=== PATIENT | female | born 1950 | race Hispanic/Latino ===

== ENCOUNTER 2019-03-01 13:09 | Observation (INO) | payer MEDICARE, OTHER ==
[2019-03-01 13:16] VITALS: BMI 31.5
--- NOTE | 2019-03-01 13:33 | ED PDOC ---
Arrival/HPI <Dallin Guzman - Last Filed: 03/01/19 13:58> - General Historian: Patient - History of Present Illness Narrative History of Present Illness (Text): 03/01/19 13:33 Patient is a 68 yo female with COPD, MVP, and depression who presents with chest tightness and dyspnea on exertion. patient states that these symptoms have been occurring for approximately 2 weeks. She has noticed that she becomes very fatigued when cleaning the house or going upstairs. She also feels like she needs to gasp for air at times when talking. She also complains of intermittent left arm numbness/tingling. She saw her boil off worker because she thought it was her COPD. However, she reports that they did a breathing test and told her it was not her lungs and she should see her towel folder. She tried to schedule an appointment with her towel folder, but they told her to just come to the ED to get evaluated. She denies chest pain/pressure. She denies palpitations. She denies trouble breathing when lying flat. She denies edema. She endorses mild headache. She denies lightheadedness or dizziness. Patient reports a history of mitral valve prolapse and does not remember the last time she had an echo. <Vani Peter - Last Filed: 03/01/19 14:43> - General Chief Complaint: Chest Pain Time Seen by Provider: 03/01/19 13:16 Past Medical History - Provider Review Nursing Documentation Reviewed: Yes Primary Care Provider: Fabian Mratinez - Infectious Disease Hx of Infectious Diseases: None - Tetanus Immunization Tetanus Immunization: Unknown - Pulmonary Hx Bronchitis: Yes Hx Chronic Obstructive Pulmonary Disease (COPD): Yes - Musculoskeletal/Rheumatological Hx Falls: No - Psychiatric Hx Depression: Yes Hx Substance Use: No - Surgical History Hx Appendectomy: Yes - Anesthesia Hx Anesthesia: Yes Hx Anesthesia Reactions: No Hx Malignant Hyperthermia: No - Suicidal Assessment Feels Threatened In Home Enviroment: No <Vani Peter - Last Filed: 03/01/19 14:43> Family/Social History - Physician Review Nursing Documentation Reviewed: Yes Family/Social History: Unknown Family HX Smoking Status: Former Smoker Hx Alcohol Use: No Hx Substance Use: No Hx Substance Use Treatment: No <Vani Peter - Last Filed: 03/01/19 14:43> Allergies/Home Meds <Dallin Guzman - Last Filed: 03/01/19 13:58> <PumaAarti ruizVani - Last Filed: 03/01/19 14:43> Allergies/Adverse Reactions: Allergies No Known Allergies Allergy (Verified 03/01/19 13:16) Home Medications: Home Meds Medication Instructions Recorded Confirmed Duloxetine Hydrochloride [Cymbalta] 60 mg PO BID 10/13/13 03/18/15 Sertraline [Zoloft] 25 mg PO HS 10/13/13 03/18/15 Review of Systems - Review of Systems Constitutional: Fatigue. absent: Fevers Eyes: absent: Vision Changes ENT: absent: Hearing Changes Respiratory: SOB. absent: Cough, Sputum, Wheezing Cardiovascular: absent: Chest Pain, Palpitations, Edema, Syncope Gastrointestinal: absent: Abdominal Pain, Constipation, Diarrhea, Nausea, Vomiting Genitourinary Female: absent: Dysuria, Hematuria Musculoskeletal: absent: Arthralgias, Myalgias Skin: absent: Rash, Pruritis, Skin Lesions Neurological: Headache. absent: Dizziness, Focal Weakness Endocrine: absent: Diaphoresis Hemo/Lymphatic: absent: Adenopathy Psychiatric: Anxiety <PumasaraVani - Last Filed: 03/01/19 14:43> Physical Exam Vital Signs Temp Pulse Resp BP Pulse Ox 03/01/19 13:16 98.6 F 80 19 134/94 H 98 <Dallin Guzman - Last Filed: 03/01/19 13:58> Vital Signs Reviewed: Yes Temperature: Afebrile Blood Pressure: Hypertensive Pulse: Regular Respiratory Rate: Normal Appearance: Positive for: Non-Toxic, Comfortable Pain Distress: None Mental Status: Positive for: Alert and Oriented X 3 - Systems Exam Head: Present: Atraumatic, Normocephalic Pupils: Present: PERRL Extroacular Muscles: Present: EOMI Conjunctiva: Present: Normal Mouth: Present: Moist Mucous Membranes Neck: Present: Normal Range of Motion Respiratory/Chest: Present: Clear to Auscultation, Good Air Exchange Cardiovascular: Present: Regular Rate and Rhythm, Normal S1, S2 Abdomen: No: Tenderness, Distention Upper Extremity: Present: Normal Inspection, Neurovascularly Intact Lower Extremity: Present: Normal Inspection. No: Edema Neurological: Present: GCS=15, CN II-XII Intact, Speech Normal Skin: Present: Warm, Dry, Normal Color Psychiatric: Present: Alert, Oriented x 3, Normal Insight, Normal Concentration, Normal Affect, Normal Mood <Vani Peter - Last Filed: 03/01/19 14:43> Medical Decision Making ED Course and Treatment: 03/01/19 13:58 Patient seen and examined with resident. 68 year old F presents complaining of shortness of breath and dyspnea on exertion. No crackles on exam. - RAD Interpretation Radiology Orders: 03/01/19 13:51 CXR [CHEST PORTABLE] [RAD] Stat <Dallin Guzman - Last Filed: 03/01/19 13:58> ED Course and Treatment: 03/01/19 13:47 Labs CXR 03/01/19 14:[address] Mcclellan who accepts patient to his service. Will consult Dr. Lentz for cardiology. 03/01/19 14:42 Spoke to patient regarding admission, and she is in agreement with the plan. - Lab Interpretations I have reviewed the lab results: Yes Interpretation: No clinic. lab abnormalty - RAD Interpretation Narrative RAD Interpretations (Text): 03/01/19 14:14 CXR- no active disease, mild venous congestion Radiology Orders: CXR Cook [place]: ED Physician - EKG Interpretation EKG Interpretation (Text): 03/01/19 13:54 NSR Interpreted by ED Physician: Yes Type: 12 lead EKG Comparison: No previous EKG avail. <Vani Peter - Last Filed: 03/01/19 14:43> Disposition/Present on Arrival <Dallin Guzman - Last Filed: 03/01/19 13:58> - Present on Arrival Any Indicators Present on Arrival: No History of DVT/PE: No History of Uncontrolled Diabetes: No Urinary Catheter: No History of Decub. Ulcer: No History Surgical Site Infection Following: None - Disposition Have Diagnosis and Disposition been Completed?: Yes Disposition Time: 13:52 Patient Plan: Observation, Telemetry <Vani Peter - Last Filed: 03/01/19 14:43> - Disposition Diagnosis: Dyspnea on exertion, Chest tightness Disposition: HOSPITALIZED Patient Problems: Current Active Problems Problem Status Onset Chest tightness Acute Dyspnea on exertion Acute Condition: FAIR Forms: [employer] (Yi)
[2019-03-01 14:15] LABS: BASO # 0.02 K/mm3 (0.0-2.0); BASO % 0.4 % (0.0-3.0); EOS # 0.2 (0.0-0.7); EOS % 3.3 % (1.5-5.0); HEMOGLOBIN 12.6 g/dL (12.0-16.0); LYMPH # 1.3 (1.2-3.4); LYMPH % 24.6 % (22.0-35.0); MEAN CORPUSCULAR HEMOGLOBIN 29.8 pg (25.0-35.0); MEAN CORPUSCULAR HGB CONC 32.7 g/dl (31.0-37.0); MEAN PLATELET VOLUME 9.4 fl (7.0-11.0); MONO # 0.3 (0.1-0.6); MONO % 6.6 % (1.0-6.0); RBC 4.23 10^6/uL (3.5-6.1); RED CELL DISTRIBUTION WIDTH 13.6 % (11.5-14.5); WHITE BLOOD COUNT 5.2 10^3/uL (4.5-11.0)
[2019-03-01 14:22] LABS: ALB/GLOB RATIO 1.4 (1.1-1.8); ALBUMIN 3.9 g/dL (3.0-4.8); ALT/SGPT 25 U/L (7-56); AST/SGOT 36 U/L (14-36); BLOOD UREA NITROGEN 17 mg/dL (7-21); CALCIUM 9.2 mg/dL (8.4-10.5); GFR NON-AFRICAN AMERICAN > 60
[2019-03-01 14:34] LABS: B-TYPE NATRIURETIC PEPTIDE 101 pg/mL (0-450); TROPONIN I < 0.01 ng/mL
[2019-03-01 14:39] LABS: FREE T4 1.16 ng/dL (0.78-2.19)
--- NOTE | 2019-03-01 14:42 | RAD ---
Date of service: 03/01/2019 HISTORY: Dyspnea on exertion COMPARISON: 03/18/2015 FINDINGS: LUNGS: No active pulmonary disease. PLEURA: No significant pleural effusion identified, no pneumothorax apparent. CARDIOVASCULAR: No atherosclerotic calcification present Normal. OSSEOUS STRUCTURES: No significant abnormalities. VISUALIZED UPPER ABDOMEN: Normal. OTHER FINDINGS: None. IMPRESSION: No active disease. No significant interval change compared to the prior examination(s).
[2019-03-01] MEDS ORDERED: Albuterol-Ipratrop 3 mg / 0.5 (3 ml) UD IH PRN (15:42)
--- NOTE | 2019-03-01 16:00 | CP.PCM.HP ---
<Niall Virgen - Last Filed: 03/01/19 15:52> History of Present Illness - History of Present Illness History of Present Illness: Niall Virgen D.O. PGY-3, Internal Medicine Resident, Dr. Mcclellan's Service, H&P CC: Chest tightness for approximately 2 weeks. 68-year-old female with a past medical history of COPD, heart murmur, anxiety and depression who presents for complaints of chest tightness has been going on for approximately 2 weeks. Patient states that she is usually very physically active, states that she walks faster further than people her age and younger sometimes but now has started to notice that she has a little bit of shortness of breath with activity. States that she has absolutely no issues when she is laying down comfortably or sleeping. Patient thought that maybe she was getting sick and so she called ahead to see her hydraulic riveter who evaluated her and told her that her lungs were not the problem. Patient was encouraged to go to the hospital and be evaluated at that time. She denies pain itself and describes only a pressure that sometimes radiates to her back. States that it is not associated with eating in any way either. Denies palpitations, orthopnea, edema, lightheadedness, dizziness, hematuria, dysuria, diarrhea, nausea, vomiting, constipation, or any other complaints at this time. PMH: As above PSH: Appendectomy, left knee replacement in June 2018 SH: Multiple years of smoking, quit about 3 years ago, ended up smoking again and now has been off cigarettes for 1 year Medications: Pristiq 100 mg p.o. daily, Wellbutrin XL 300 mg p.o. daily, Xanax 1 mg p.o. twice daily, Ambien 10 mg p.o. at bedtime, discussed with her pharmacy [facility] on [address] at [phone] Allergies: No known allergies Present on Admission - Present on Admission Any Indicators Present on Admission: No Review of Systems - Review of Systems All systems: reviewed and no additional remarkable complaints except (as per HPI) Past Patient History - Infectious Disease Hx of Infectious Diseases: None - Tetanus Immunizations Tetanus Immunization: Unknown - Past Social History Smoking Status: Former Smoker - PULMONARY Hx Bronchitis: Yes Hx Chronic Obstructive Pulmonary Disease (COPD): Yes - MUSCULOSKELETAL/RHEUMATOLOGICAL Hx Falls: No - PSYCHIATRIC Hx Depression: Yes Hx Substance Use: No - SURGICAL HISTORY Hx Appendectomy: Yes - ANESTHESIA Hx Anesthesia: Yes Hx Anesthesia Reactions: No Hx Malignant Hyperthermia: No Meds Allergies/Adverse Reactions: Allergies Allergy/AdvReac Type Severity Reaction Status Date / Time No Known Allergies Allergy Verified 03/01/19 18:25 Physical Exam - Constitutional Appears: Non-toxic, No Acute Distress - Head Exam Head Exam: ATRAUMATIC, NORMOCEPHALIC - Eye Exam Eye Exam: EOMI, PERRL. absent: Scleral icterus - ENT Exam ENT Exam: Mucous Membranes Moist, Normal Oropharynx - Neck Exam Neck exam: Positive for: Normal Inspection. Negative for: Lymphadenopathy, Tenderness - Respiratory Exam Respiratory Exam: Clear to Auscultation Bilateral. absent: Rales, Rhonchi, Wheezes - Cardiovascular Exam Cardiovascular Exam: RRR, +S1, +S2, Systolic Murmur. absent: Gallop, Rubs - GI/Abdominal Exam GI & Abdominal Exam: Normal Bowel Sounds, Soft. absent: Distended, Tenderness - Extremities Exam Extremities exam: Positive for: normal capillary refill, normal inspection, pedal pulses present. Negative for: calf tenderness, joint swelling, pedal edema, tenderness - Neurological Exam Neurological exam: Alert, Oriented x3 - Psychiatric Exam Psychiatric exam: Normal Affect, Normal Mood - Skin Skin Exam: Dry, Intact, Warm Results - Vital Signs Recent Vital Signs: Last Vital Signs Temp 98.3 F 03/01/19 14:26 Pulse 88 03/01/19 14:26 Resp 19 03/01/19 14:26 BP 124/72 03/01/19 14:26 Pulse Ox 97 03/01/19 14:26 - Labs Result Diagrams: 03/01/19 13:56 03/01/19 13:56 Labs: Laboratory Results - last 24 hr 03/01/19 03/01/19 03/01/19 13:56 13:56 13:56 WBC 5.2 RBC 4.23 Hgb 12.6 Hct 38.5 MCV 91.0 MCH 29.8 MCHC 32.7 RDW 13.6 Plt Count 216 MPV 9.4 Neut % (Auto) 65.1 Lymph % (Auto) 24.6 [place] % (Auto) 6.6 H Eos % (Auto) 3.3 Baso % (Auto) 0.4 Lymph # (Auto) 1.3 [place] # (Auto) 0.3 Eos # (Auto) 0.2 Baso # (Auto) 0.02 Absolute Neuts (auto) 3.37 Sodium 140 Potassium 4.8 Chloride 104 Carbon Dioxide 31 Anion Gap 10 BUN 17 Creatinine 0.9 Est GFR ( Amer) > 60 Est GFR (Non-Af Amer) > 60 Random Glucose 90 Calcium 9.2 Phosphorus 3.3 Magnesium 1.8 Total Bilirubin 0.3 AST 36 ALT 25 Alkaline Phosphatase 72 Lactate Dehydrogenase 522 Total Creatine Kinase 149 Troponin I < 0.01 NT-Pro-B Natriuret Pep 101 Total Protein 6.6 Albumin 3.9 Globulin 2.7 Albumin/Globulin Ratio 1.4 Free T4 1.16 TSH 3rd Generation 2.51 Assessment & Plan - Assessment and Plan (Free Text) Assessment: 68-year-old female with a past medical history of COPD, heart murmur, anxiety an d depression who presents for complaints of chest tightness has been going on for approximately 2 weeks. Plan: 1. Chest tightness 2. COPD 3. Heart murmur 4. Anxiety and depression Patient to be placed in observation. First troponin is negative. EKG does not show any major new EKG changes when compared to an older one from 4 years ago th at was done here. Normal sinus rhythm, normal axis, normal intervals. Called her outpatient pharmacy to confirm what medications she takes and they are as listed earlier in the note. These will be continued as far as what we have on formulary here. Will trend tronoponins x3. First one negative. Discussed all this with patient. Given her semi-recent surgery we will obtain a d-dimer. Also given the fact that the discomfort radiates to the back we will obtain a lipase. Patient does not PERC out but has a Well score of 0. However clot is in the differential given her issues with dyspnea. We will keep a close eye on her vital signs. We will also obtain a telecom analyst consultation with Dr. Lentz. We will obtain an echocardiogram to better analyze the function of the heart. We will also obtain an incentive spirometer to encourage proper breathing exercises in this patient. For her COPD she will be started on brovana and pulmicort with PRN breathing treatments. Discussed with lab team. Will obtain D-Dimmer and lipase toa, Pharmacy, when called, state they don' have her as taking medications. For her anxiety the patient will be continued on her home wellbutrin. Pristiq is nonformulary, advised for patient to have someone bring it. Will follow clinically. Patient was seen and examined and case to be discussed with attending physician. - Date & Time Date: 03/01/19 Time: 15:00 <Reza Mcclellan - Last Filed: 03/02/19 17:12> Results - Vital Signs Recent Vital Signs: Last Vital Signs Temp 98.0 F 03/02/19 12:00 Pulse 78 03/02/19 12:00 Resp 18 03/02/19 12:00 BP 118/73 03/02/19 12:00 Pulse Ox 99 03/01/19 19:23 - Labs Result Diagrams: 03/01/19 13:56 03/01/19 13:56 Labs: Laboratory Results - last 24 hr 03/01/19 03/01/19 03/02/19 18:23 20:54 06:30 D-Dimer, Quantitative 292 H Hemoglobin A1c Troponin I < 0.01 < 0.01 Triglycerides 133 Cholesterol 169 LDL Cholesterol Direct 100 HDL Cholesterol 42 03/02/19 06:30 D-Dimer, Quantitative Hemoglobin A1c 5.3 Troponin I Triglycerides Cholesterol LDL Cholesterol Direct HDL Cholesterol Assessment & Plan - Assessment and Plan (Free Text) Plan: Patient was seen and examined by me. I have reviewed the note of the medical technicians and have gone over the plan of care. I agree with the note. I have reviewed the medications and the last labs.
[2019-03-01 18:03] VITALS: O2SAT 99
[2019-03-01] MEDS ORDERED: Arformoterol 15 mcg/2 ml Inh Sol IH SCH ×2 (20:00)
[2019-03-01] MEDS ORDERED: Budesonide 0.25 mg/2 ml Inhal Susp UD IH SCH (20:00)
--- NOTE | 2019-03-01 20:32 | CARD ---
APPROVED REPORT Date of service: 03/01/2019 EKG Measurement Heart [id number] <Conclusion> Normal sinus rhythm Normal ECG
[2019-03-01] MEDS ORDERED: Enoxaparin 80 mg Syringe SC ONE (20:33)
[2019-03-01] MEDS ORDERED: Pneumococcal 23-Valent Vaccine IM ONE (21:29)
[2019-03-01] MEDS: Budesonide 0.25 mg/2 ml Inhal Susp UD IH SCH (21:49)
[2019-03-01] MEDS ORDERED: ASTHMANEX INH SCH (22:00)
[2019-03-02 01:28] VITALS: RESP 18
[2019-03-02 07:12] LABS: HDL CHOLESTEROL 42 mg/dL (29-60)
[2019-03-02 07:20] LABS: TROPONIN I < 0.01 ng/mL
[2019-03-02 07:23] LABS: LDL CHOLESTEROL 100 mg/dL (0-129)
[2019-03-02] MEDS: Budesonide 0.25 mg/2 ml Inhal Susp UD IH SCH (07:30)
[2019-03-02] MEDS: STIOLTO 2.5 MCG INH SCH ×2 (09:16→09:42)
[2019-03-02] MEDS ORDERED: buPROPion 300 mg/24 Hours XL Tab PO SCH (10:00)
[2019-03-02] MEDS ORDERED: PRISTIQ 100 MG PO SCH (10:00)
--- NOTE | 2019-03-02 11:41 | CP.PCM.CON ---
History of Present Illness - History of Present Illness History of Present Illness: CONSULT for Dr. GOMEZ Awake, alert, no distress,denies chest pain Reason for consultation:Cardiac evaluation of chest tightness and shortness of breath Brief history of present illness: A 68 year old female who came in to the ER due to chest tightness and shortness of breath. Complaints of mid chest tightness radiating to back and left arm. She is also complaining of shortness of breath when walking for the past 2 weeks. Patient claims to be physically active. She called Dr. Gomez's office for an appointment but was told that he is on vacation and if needed urgent attention to go to the ER . History of COPD, heart murmur/leaky valve for many years, anxiety and depression, appendectomy, left knee replacement in June 2018, former smoker. Seen and examined by me and Dr. Blackmon Review of Systems - Review of Systems All systems: reviewed and no additional remarkable complaints except Review of Systems: as per HPI Past Patient History - Infectious Disease Hx of Infectious Diseases: None - Tetanus Immunizations Tetanus Immunization: Unknown - Past Social History Smoking Status: Former Smoker - CARDIAC Hx Cardiac Disorders: Yes ("LEAKY VALVE") Hx Heart Murmur: Yes - PULMONARY Hx Respiratory Disorders: Yes (USED TO SMOKE CIGARETES,QUIT 2017) Hx Bronchitis: Yes Hx Chronic Obstructive Pulmonary Disease (COPD): Yes - NEUROLOGICAL Hx Neurological Disorder: Yes Hx Migraine: Yes - HEENT Hx HEENT Problems: No - RENAL Hx Chronic Kidney Disease: No - ENDOCRINE/METABOLIC Hx Endocrine Disorders: No - HEMATOLOGICAL/ONCOLOGICAL Hx Blood Disorders: No - INTEGUMENTARY Hx Dermatological Problems: No - MUSCULOSKELETAL/RHEUMATOLOGICAL Hx Musculoskeletal Disorders: Yes (L KNEE REPLACEMENT JUN 2018) Hx Falls: No - GASTROINTESTINAL Hx Gastrointestinal Disorders: Yes (APPENDECTOMY) - GENITOURINARY/GYNECOLOGICAL Hx Genitourinary Disorders: No - PSYCHIATRIC Hx Psychophysiologic Disorder: Yes (INSOMNIA) Hx Anxiety: Yes Hx Depression: Yes Hx Substance Use: No - SURGICAL HISTORY Hx Surgeries: Yes (L KNEE REPLACEMENT JUN 2018) Hx Appendectomy: Yes - ANESTHESIA Hx Anesthesia: Yes Hx Anesthesia Reactions: No Hx Malignant Hyperthermia: No Meds Allergies/Adverse Reactions: Allergies Allergy/AdvReac Type Severity Reaction Status Date / Time No Known Allergies Allergy Verified 03/01/19 18:25 - Medications Medications: Current Medications Albuterol/Ipratropium (Duoneb 3 Mg/0.5 Mg (3 Ml) Ud) 3 ml IH Q2H PRN PRN Reason: Shortness of Breath Alprazolam (Xanax) 1 mg PO BID PRN; Protocol PRN Reason: Anxiety Bupropion HCl (Wellbutrin Xl) 300 mg PO DAILY [facility] Last Admin: 03/02/19 09:16 Dose: 300 mg Home Med (Home Med) 1 unit INH DAILY [facility] Last Admin: 03/02/19 09:42 Dose: Not Given Mometasone Furoate (Asmanex Twisthaler 220 Mcg) 1 puff IH QPM [facility] Zolpidem Tartrate (Ambien) 5 mg PO HS PRN; Protocol PRN Reason: Sleep Last Admin: 03/01/19 21:49 Dose: 5 mg Physical Exam - Constitutional Appears: Non-toxic, No Acute Distress - Head Exam Head Exam: NORMAL INSPECTION, NORMOCEPHALIC - Eye Exam Eye Exam: Normal appearance Pupil Exam: NORMAL ACCOMODATION - ENT Exam ENT Exam: Mucous Membranes Moist, Normal Exam - Respiratory Exam Respiratory Exam: Decreased Breath Sounds, Clear to Auscultation Bilateral, NORMAL BREATHING PATTERN - Cardiovascular Exam Cardiovascular Exam: REGULAR RHYTHM, +S1, +S2 - GI/Abdominal Exam GI & Abdominal Exam: Normal Bowel Sounds - Rectal Exam Rectal Exam: Deferred - Extremities Exam Extremities exam: Positive for: full ROM, normal capillary refill - Neurological Exam Neurological exam: Alert, Oriented x3 - Psychiatric Exam Psychiatric exam: Normal Affect, Normal Mood - Skin Skin Exam: Normal Color, Warm Results - Vital Signs Recent Vital Signs: Last Vital Signs Temp 98.1 F 03/02/19 00:01 Pulse 87 03/02/19 10:00 Resp 18 03/02/19 00:01 BP 115/76 03/02/19 00:01 Pulse Ox 99 03/01/19 19:23 - Labs Result Diagrams: 03/01/19 13:56 03/01/19 13:56 Labs: Laboratory Results - last 24 hr 03/01/19 03/01/19 03/01/19 13:56 13:56 13:56 WBC 5.2 RBC 4.23 Hgb 12.6 Hct 38.5 MCV 91.0 MCH 29.8 MCHC 32.7 RDW 13.6 Plt Count 216 MPV 9.4 Neut % (Auto) 65.1 Lymph % (Auto) 24.6 [place] % (Auto) 6.6 H Eos % (Auto) 3.3 Baso % (Auto) 0.4 Lymph # (Auto) 1.3 [place] # (Auto) 0.3 Eos # (Auto) 0.2 Baso # (Auto) 0.02 Absolute Neuts (auto) 3.37 D-Dimer, Quantitative Sodium 140 Potassium 4.8 Chloride 104 Carbon Dioxide 31 Anion Gap 10 BUN 17 Creatinine 0.9 Est GFR ( Amer) > 60 Est GFR (Non-Af Amer) > 60 Random Glucose 90 Hemoglobin A1c Calcium 9.2 Phosphorus 3.3 Magnesium 1.8 Total Bilirubin 0.3 AST 36 ALT 25 Alkaline Phosphatase 72 Lactate Dehydrogenase 522 Total Creatine Kinase 149 Troponin I < 0.01 NT-Pro-B Natriuret Pep 101 Total Protein 6.6 Albumin 3.9 Globulin 2.7 Albumin/Globulin Ratio 1.4 Triglycerides Cholesterol LDL Cholesterol Direct HDL Cholesterol Lipase Free T4 1.16 TSH 3rd Generation 2.51 03/01/19 03/01/19 03/01/19 13:56 18:23 20:54 WBC RBC Hgb Hct MCV MCH MCHC RDW Plt Count MPV Neut % (Auto) Lymph % (Auto) [place] % (Auto) Eos % (Auto) Baso % (Auto) Lymph # (Auto) [place] # (Auto) Eos # (Auto) Baso # (Auto) Absolute Neuts (auto) D-Dimer, Quantitative 292 H Sodium Potassium Chloride Carbon Dioxide Anion Gap BUN Creatinine Est GFR ( Amer) Est GFR (Non-Af Amer) Random Glucose Hemoglobin A1c Calcium Phosphorus Magnesium Total Bilirubin AST ALT Alkaline Phosphatase Lactate Dehydrogenase Total Creatine Kinase Troponin I < 0.01 NT-Pro-B Natriuret Pep Total Protein Albumin Globulin Albumin/Globulin Ratio Triglycerides Cholesterol LDL Cholesterol Direct HDL Cholesterol Lipase 94 Free T4 TSH 3rd Generation 03/02/19 03/02/19 06:30 06:30 WBC RBC Hgb Hct MCV MCH MCHC RDW Plt Count MPV Neut % (Auto) Lymph % (Auto) [place] % (Auto) Eos % (Auto) Baso % (Auto) Lymph # (Auto) [place] # (Auto) Eos # (Auto) Baso # (Auto) Absolute Neuts (auto) D-Dimer, Quantitative Sodium Potassium Chloride Carbon Dioxide Anion Gap BUN Creatinine Est GFR ( Amer) Est GFR (Non-Af Amer) Random Glucose Hemoglobin A1c 5.3 Calcium Phosphorus Magnesium Total Bilirubin AST ALT Alkaline Phosphatase Lactate Dehydrogenase Total Creatine Kinase Troponin I < 0.01 NT-Pro-B Natriuret Pep Total Protein Albumin Globulin Albumin/Globulin Ratio Triglycerides 133 Cholesterol 169 LDL Cholesterol Direct 100 HDL Cholesterol 42 Lipase Free T4 TSH 3rd Generation Assessment & Plan - Assessment and Plan (Free Text) Assessment: A 68 year old female who came in to the ER due to chest tightness and shortness of breath. Complaints of mid chest tightness radiating to back and left arm. She is also complaining of shortness of breath when walking for the past 2 weeks. Patient claims to be physically active. She called Dr. Gomez's office for an appointment but was told that he is on vacation and if needed urgent attention to go to the ER . She thought to be just stress however got worried and came to the ER. History of COPD, heart murmur/leaky valve for many years, anxiety and depression, appendectomy, left knee replacement in June 2018, former smoker. She follows up with Dr. Crocker for many years and now with Dr. Gomez. Last Echo and stress test about 3-5 years ago. No cardiac work up at [facility] [place]. Chest Xray -unremarkable, Troponin negative/normal x 3. EKG showed normal sinus rhythm, no ischemia. Atypical chest pain. No evidence of acute coronary ischemia/infarction. Echo to evaluate LV function. If echo results okay, may discharge home from cardiac standpoint and follow up with Dr. Gomez. Out patient stress test. Plan: Denies chest pain now Heart rate stable Blood pressure controlled Echo to evaluate LV function and valves Continue current treatment Continue current medications May discharge home from cardiac standpoint after echo and follow up with Dr. Gomez. Out patient stress test Will follow up Plan and treatment discussed with Dr. Blackmon Thank you Dr. Mcclellan for the opportunity of taking care of June Wren - Date & Time Date: 03/02/19 Time: 11:50
[2019-03-02 12:13] VITALS: BP 118/73; TEMP 98
--- NOTE | 2019-03-02 15:36 | CP.PCM.DIS ---
<Niall Virgen - Last Filed: 03/02/19 15:28> Provider - Provider Date of Admission: 03/01/19 14:59 Attending physician: Reza Mcclellan MD Primary care physician: Fabian Martinez MD Consults: 03/01/19 14:40 Cardiology Consult Routine Comment: Consulting Provider: Dallin Mixon Consulting Physician: Dallin Mixon Reason for Consult: dyspnea on exertion, h/o MVP 03/01/19 21:29 Inpatient SHOVEL OPERATOR Core Measures Referral Routine Comment: Physician Instructions: Reason For Exam: EVALUATION Transition In Care/Readmission Reduction Routine Comment: Physician Instructions: Reason For Exam: EVALUATION Time Spent in preparation of Discharge (in minutes): 45 Diagnosis - Discharge Diagnosis (1) Chest tightness Status: Acute (2) Dyspnea on exertion Status: Acute Hospital Course - Lab Results Lab Results: Most Recent Lab Values WBC 5.2 10^3/uL (4.5-11.0) 03/01/19 13:56 RBC 4.23 10^6/uL (3.5-6.1) 03/01/19 13:56 Hgb 12.6 g/dL (12.0-16.0) 03/01/19 13:56 Hct 38.5 % (36.0-48.0) 03/01/19 13:56 MCV 91.0 fl (80.0-105.0) 03/01/19 13:56 MCH 29.8 pg (25.0-35.0) 03/01/19 13:56 MCHC 32.7 g/dl (31.0-37.0) 03/01/19 13:56 RDW 13.6 % (11.5-14.5) 03/01/19 13:56 Plt Count 216 10^3/uL (120.0-450.0) 03/01/19 13:56 MPV 9.4 fl (7.0-11.0) 03/01/19 13:56 Neut % (Auto) 65.1 % (50.0-68.0) 03/01/19 13:56 Lymph % (Auto) 24.6 % (22.0-35.0) 03/01/19 13:56 [place] % (Auto) 6.6 % (1.0-6.0) H 03/01/19 13:56 Eos % (Auto) 3.3 % (1.5-5.0) 03/01/19 13:56 Baso % (Auto) 0.4 % (0.0-3.0) 03/01/19 13:56 Lymph # (Auto) 1.3 (1.2-3.4) 03/01/19 13:56 [place] # (Auto) 0.3 (0.1-0.6) 03/01/19 13:56 Eos # (Auto) 0.2 (0.0-0.7) 03/01/19 13:56 Baso # (Auto) 0.02 K/mm3 (0.0-2.0) 03/01/19 13:56 Absolute Neuts (auto) 3.37 (1.4-6.5) 03/01/19 13:56 D-Dimer, Quantitative 292 ng/mlDDU (0-243) H 03/01/19 18:23 Sodium 140 mmol/L (132-148) 03/01/19 13:56 Potassium 4.8 mmol/L (3.6-5.0) 03/01/19 13:56 Chloride 104 mmol/L (98-107) 03/01/19 13:56 Carbon Dioxide 31 mmol/L (21-33) 03/01/19 13:56 Anion Gap 10 (10-20) 03/01/19 13:56 BUN 17 mg/dL (7-21) 03/01/19 13:56 Creatinine 0.9 mg/dl (0.7-1.2) 03/01/19 13:56 Est GFR ( Amer) > 60 03/01/19 13:56 Est GFR (Non-Af Amer) > 60 03/01/19 13:56 Random Glucose 90 mg/dL (70-110) 03/01/19 13:56 Hemoglobin A1c 5.3 % (4.2-6.5) 03/02/19 06:30 Calcium 9.2 mg/dL (8.4-10.5) 03/01/19 13:56 Phosphorus 3.3 mg/dL (2.5-4.5) 03/01/19 13:56 Magnesium 1.8 mg/dL (1.7-2.2) 03/01/19 13:56 Total Bilirubin 0.3 mg/dL (0.2-1.3) 03/01/19 13:56 AST 36 U/L (14-36) 03/01/19 13:56 ALT 25 U/L (7-56) 03/01/19 13:56 Alkaline Phosphatase 72 U/L (38-126) 03/01/19 13:56 Lactate Dehydrogenase 522 U/L (333-699) 03/01/19 13:56 Total Creatine Kinase 149 U/L (35-230) 03/01/19 13:56 Troponin I < 0.01 ng/mL 03/02/19 06:30 NT-Pro-B Natriuret Pep 101 pg/mL (0-450) 03/01/19 13:56 Total Protein 6.6 g/dL (5.8-8.3) 03/01/19 13:56 Albumin 3.9 g/dL (3.0-4.8) 03/01/19 13:56 Globulin 2.7 gm/dL 03/01/19 13:56 Albumin/Globulin Ratio 1.4 (1.1-1.8) 03/01/19 13:56 Triglycerides 133 mg/dL (35-160) 03/02/19 06:30 Cholesterol 169 mg/dL (130-200) 03/02/19 06:30 LDL Cholesterol Direct 100 mg/dL (0-129) 03/02/19 06:30 HDL Cholesterol 42 mg/dL (29-60) 03/02/19 06:30 Lipase 94 U/L (23-300) 03/01/19 13:56 Free T4 1.16 ng/dL (0.78-2.19) 03/01/19 13:56 TSH 3rd Generation 2.51 mIU/mL (0.46-4.68) 03/01/19 13:56 - Hospital Course Hospital Course: Niall Virgen D.O. PGY-3, Internal Medicine Resident, Dr. Mcclellan's Service, D ischarge Summary 68-year-old female with a past medical history of COPD, heart murmur, anxiety and depression who presents for complaints of chest tightness has been going on for approximately 2 weeks. Patient was placed in observation for further evaluation. Patient had a chest x-ray which showed no active disease. Patient also had an EKG which showed normal sinus rhythm with normal intervals. Patient had a cardiology consultation. First troponin was negative. Subsequent second and third troponin were also found to be negative. Patient's lipid panel came back normal. Thyroid profile was also normal. Hemoglobin A1c came back normal at 5.3%. Patient was continued on home medication for anxiety and depression. Patient received PRN breathing treatments which she actually did not requests. Patient was also continued on her zolpidem for her insomnia. Patient of note had a d-dimer drawn of 292, the results of which are negative given her age. Lab ranges usually have a cutoff of 500 and at her age her cut off should be more about 700. Wells score was 0. Patient was seen and examined at bedside this morning and again later in the afternoon. Patient states that she feels better but at times continues to have a little bit of discomfort. All of the above was discussed with her at length. Currently patient will be unable to obtain an echocardiogram due to technical reasons and given that she has been doing better and all current work-up has been negative it was discussed with cardiology who agrees that the patient can have an outpatient echocardiogram. Prescription was given to the patient for echocardiogram. Patient was explained on how to obtain echocardiogram here in the hospital. All questions were welcomed and answered to the patient's satisfaction. We had an extensive discussion about all of the above mentioned. Patient will be discharged home with clear instructions to follow-up with her primary medical doctor within 1 to 2 weeks and with cardiology as indicated. Patient is to resume all of her home medications. Discussed with nursing staff. All labs and imaging studies reviewed. EKG reviewed. Patient discharged in stable condition to home. Advised to return to ER for any worsening symptoms or other concerns. - Date & Time of H&P Date of H&P: 03/02/19 Time of H&P: 15:00 Discharge Exam - Head Exam Head Exam: NORMAL INSPECTION, NORMOCEPHALIC - Eye Exam Eye Exam: EOMI. absent: Scleral icterus - ENT Exam ENT Exam: Mucous Membranes Moist, Normal Oropharynx - Neck Exam Neck exam: Normal Inspection - Respiratory Exam Respiratory Exam: Clear to PA & Lateral. absent: Rales, Rhonchi, Wheezes - Cardiovascular Exam Cardiovascular Exam: RRR, +S1, +S2, Systolic Murmur (2/6). absent: Gallop, Rubs - GI/Abdominal Exam GI & Abdominal Exam: Normal Bowel Sounds, Soft. absent: Distended, Tenderness - Extremities Exam Extremities exam: normal capillary refill, pedal pulses present - Neurological Exam Neurological exam: Alert, CN II-XII Intact, Oriented x3 - Psychiatric Exam Psychiatric exam: Normal Affect, Normal Mood - Skin Skin Exam: Dry, Warm Discharge Plan - Follow Up Plan Condition: FAIR Disposition: HOME/ ROUTINE Instructions: Echocardiogram, Adult, Heart Healthy Diet, Smoking: Not Just Harmful to Your Lungs and Heart, Chest Pain That Is Not Caused by the Heart (DC), Shortness of Breath (Dyspnea) (DC), Breathing Exercises Referrals: Fabian Martinez MD [Primary Care Provider] - <Reza Mcclellan - Last Filed: 03/02/19 17:10> Provider - Provider Date of Admission: 03/01/19 14:59 Attending physician: Reza Mcclellan MD Primary care physician: Fabian Martinez MD Consults: 03/01/19 14:40 Cardiology Consult Routine Comment: Consulting Provider: Dallin Mixon Consulting Physician: Daliln Mixon Reason for Consult: dyspnea on exertion, h/o MVP 03/01/19 21:29 Inpatient SHOVEL OPERATOR Core Measures Referral Routine Comment: Physician Instructions: Reason For Exam: EVALUATION Transition In Care/Readmission Reduction Routine Comment: Physician Instructions: Reason For Exam: EVALUATION Hospital Course - Lab Results Lab Results: Most Recent Lab Values WBC 5.2 10^3/uL (4.5-11.0) 03/01/19 13:56 RBC 4.23 10^6/uL (3.5-6.1) 03/01/19 13:56 Hgb 12.6 g/dL (12.0-16.0) 03/01/19 13:56 Hct 38.5 % (36.0-48.0) 03/01/19 13:56 MCV 91.0 fl (80.0-105.0) 03/01/19 13:56 MCH 29.8 pg (25.0-35.0) 03/01/19 13:56 MCHC 32.7 g/dl (31.0-37.0) 03/01/19 13:56 RDW 13.6 % (11.5-14.5) 03/01/19 13:56 Plt Count 216 10^3/uL (120.0-450.0) 03/01/19 13:56 MPV 9.4 fl (7.0-11.0) 03/01/19 13:56 Neut % (Auto) 65.1 % (50.0-68.0) 03/01/19 13:56 Lymph % (Auto) 24.6 % (22.0-35.0) 03/01/19 13:56 [place] % (Auto) 6.6 % (1.0-6.0) H 03/01/19 13:56 Eos % (Auto) 3.3 % (1.5-5.0) 03/01/19 13:56 Baso % (Auto) 0.4 % (0.0-3.0) 03/01/19 13:56 Lymph # (Auto) 1.3 (1.2-3.4) 03/01/19 13:56 [place] # (Auto) 0.3 (0.1-0.6) 03/01/19 13:56 Eos # (Auto) 0.2 (0.0-0.7) 03/01/19 13:56 Baso # (Auto) 0.02 K/mm3 (0.0-2.0) 03/01/19 13:56 Absolute Neuts (auto) 3.37 (1.4-6.5) 03/01/19 13:56 D-Dimer, Quantitative 292 ng/mlDDU (0-243) H 03/01/19 18:23 Sodium 140 mmol/L (132-148) 03/01/19 13:56 Potassium 4.8 mmol/L (3.6-5.0) 03/01/19 13:56 Chloride 104 mmol/L (98-107) 03/01/19 13:56 Carbon Dioxide 31 mmol/L (21-33) 03/01/19 13:56 Anion Gap 10 (10-20) 03/01/19 13:56 BUN 17 mg/dL (7-21) 03/01/19 13:56 Creatinine 0.9 mg/dl (0.7-1.2) 03/01/19 13:56 Est GFR ( Amer) > 60 03/01/19 13:56 Est GFR (Non-Af Amer) > 60 03/01/19 13:56 Random Glucose 90 mg/dL (70-110) 03/01/19 13:56 Hemoglobin A1c 5.3 % (4.2-6.5) 03/02/19 06:30 Calcium 9.2 mg/dL (8.4-10.5) 03/01/19 13:56 Phosphorus 3.3 mg/dL (2.5-4.5) 03/01/19 13:56 Magnesium 1.8 mg/dL (1.7-2.2) 03/01/19 13:56 Total Bilirubin 0.3 mg/dL (0.2-1.3) 03/01/19 13:56 AST 36 U/L (14-36) 03/01/19 13:56 ALT 25 U/L (7-56) 03/01/19 13:56 Alkaline Phosphatase 72 U/L (38-126) 03/01/19 13:56 Lactate Dehydrogenase 522 U/L (333-699) 03/01/19 13:56 Total Creatine Kinase 149 U/L (35-230) 03/01/19 13:56 Troponin I < 0.01 ng/mL 03/02/19 06:30 NT-Pro-B Natriuret Pep 101 pg/mL (0-450) 03/01/19 13:56 Total Protein 6.6 g/dL (5.8-8.3) 03/01/19 13:56 Albumin 3.9 g/dL (3.0-4.8) 03/01/19 13:56 Globulin 2.7 gm/dL 03/01/19 13:56 Albumin/Globulin Ratio 1.4 (1.1-1.8) 03/01/19 13:56 Triglycerides 133 mg/dL (35-160) 03/02/19 06:30 Cholesterol 169 mg/dL (130-200) 03/02/19 06:30 LDL Cholesterol Direct 100 mg/dL (0-129) 03/02/19 06:30 HDL Cholesterol 42 mg/dL (29-60) 03/02/19 06:30 Lipase 94 U/L (23-300) 03/01/19 13:56 Free T4 1.16 ng/dL (0.78-2.19) 03/01/19 13:56 TSH 3rd Generation 2.51 mIU/mL (0.46-4.68) 03/01/19 13:56 - Hospital Course Hospital Course: Patient was seen and examined by me. I have reviewed the note of the director of medical services and have gone over the plan of care. I agree with the note. I have reviewed the medications and the last labs.
[2019-03-02] MEDS ORDERED: Mometasone 220 mcg/puff-14 puff Inh IH SCH (18:00)
[2019-03-02 18:02] VITALS: PULSE 91
--- NOTE | 2019-03-02 22:16 | HP ---
DATE OF EXAM: 03/02/2019 HISTORY OF PRESENT ILLNESS: The patient was seen and examined. I do agree with the note of the medical service technician. I was involved in the plan of care. The patient was admitted to the hospital for observation because of chest pain. She had EKG that was showing sinus rhythm. Hemoglobin A1c was normal. She had normal thyroid function. The patient had mildly elevated d-dimer, but her risk factors score was low. The patient was supposed to get an echo, but will be done as an outpatient. I did speak to Dr. Blackmon who saw the patient, covering for Dr. Mixon. I did speak to Dr. Martinez regarding the case. The patient will follow up as an outpatient to get her echo and stress test done. She currently has no pain. Her cardiac enzymes have been negative. She is going to be discharged home today to follow up as an outpatient. She does have a systolic ejection murmur that is most likely from aortic stenosis. She does have anxiety and depression and has stress at home. Her COPD is currently controlled. She is not requiring any inhaler. She does use inhalers chronically and will continue this. The patient was seen today and evaluated by me. CONDITION: Stable. ACTIVITY: Increase as tolerated. Reza Mcclellan MD
== END 2019-03-02 20:44 | disposition home or self-care (01) ==
LOC: ED 13:09 → ERH 14:59 → 2RSO 19:39
PROVIDERS: ADMIT Internal Medicine Nephrology; ATTEND Internal Medicine Nephrology
DX: R07.89 Other chest pain (principal); R06.00 Dyspnea, unspecified; I08.0 Rheumatic disorders of both mitral and aortic valves; J44.9 Chronic obstructive pulmonary disease, unspecified; F32.9 Major depressive disorder, single episode, unspecified; F41.9 Anxiety disorder, unspecified; Z96.652 Presence of left artificial knee joint; Z87.891 Personal history of nicotine dependence
CPT/HCPCS: 36415; 71045; 80053; 80061; 82550; 83036; 83615; 83690; 83735; 83880; 84100; 84439; 84443; 84484; 85025; 85378; 93005; 99285; G0378; J1650